=== PATIENT | female | born 1985 | race Caucasian/White ===

== ENCOUNTER 2022-11-19 21:56 | Emergency (ER) | payer BC, SELFPAY ==
[2022-11-19 22:21] VITALS: BP 134/88; PULSE 96; RESP 18; TEMP 36.8; O2SAT 98; BMI 29.3
--- NOTE | 2022-11-19 22:38 | ED.BACK1 ---
HPI - Back Pain/Injury General Chief Complaint: Back Pain/Injury Stated Complaint: UPPER PAIN Time Seen by Provider: 11/19/22 22:33 Source: patient Mode of arrival: walk-in Limitations: no limitations History of Present Illness HPI Narrative: patient states she has a history of sciatica. Presents complaining of a flare up of her sciatica. States pain radiates into her right hamstring and also herl left buttocks. No lower extremity weakness. No loss of control of bowel or bladder. No recent injury. Denies abdominal pain or nausea. MD elicited complaint: Reports back pain Related Data Home Medications Medication Instructions Recorded Confirmed No Known Home Medications 11/19/22 11/19/22 Allergies Allergy/AdvReac Type Severity Reaction Status Date / Time No Known Drug Allergies Allergy Verified 11/19/22 22:24 Review of Systems ROS Status of ROS 10 or more systems reviewed and unremarkable except as noted in history and below [facility] Social History Smoking status: Current every day smoker Exam Constitutional Vital Signs - 24 hr 11/19/22 22:21 Temperature 98.3 F Pulse Rate [Monitor] 96 H Respiratory Rate 18 Blood Pressure [Right Arm] 134/88 H Pulse Oximetry 98 Oxygen Delivery Method Room Air Common normals: no apparent distress, oriented x3, no limitations, healthy appearing and alert [facility] Common normals: normocephalic and head/scalp atraumatic Eye Common normals: PERRL, EOMs intact bilaterally and conjunctivae normal Neck & C-Spine Common normals: full ROM Respiratory Common normals: normal respiratory effort and no use of accessory muscles Cardio Common normals: regular rate, regular rhythm, S1 normal heart sound and S2 normal heart sound GI Common normals: Normal to inspection, nondistended, normoactive bowel sounds present, soft to palpation and non-tender Back & Pelvis Common normals: no CVA tenderness Other: mild tenderness bilat SI joints. R>L Extremity Common normals: normal to inspection and full ROM Neuro Common normals: oriented x3, CN's II-XII intact bilaterally and moves all extremities Deep tendon reflexes: Rt Patellar (L4): 0, Lt Patellar (L4): 0, Rt Ankle (S1): 1+ and Lt Ankle (S1): 1+ Psych Appearance: grossly normal Course Vital Signs Vital signs: Vital Signs Temperature 98.3 F 11/19/22 22:21 Pulse Rate 96 H 11/19/22 22:21 Respiratory Rate 18 11/19/22 22:21 Blood Pressure 134/88 H 11/19/22 22:21 Pulse Oximetry 98 11/19/22 22:21 Oxygen Delivery Method Room Air 11/19/22 22:21 Temperature 98.3 F 11/19/22 22:21 Pulse Rate 96 H 11/19/22 22:21 Respiratory Rate 18 11/19/22 22:21 Blood Pressure 134/88 H 11/19/22 22:21 Pulse Oximetry 98 11/19/22 22:21 Oxygen Delivery Method Room Air 11/19/22 22:21 MDM - Back Pain/Injury MDM Narrative Medical decision making narrative: patient presents complaining of flare up of sciatica. Similar flare ups in the past. No lower extremity weakness. No neuro abnorms. Treated successfully in the department and is feeling better and requesting to go home. Lab Data Labs: Lab Results 11/19/22 Range/Units 22:54 WBC 7.5 (4.0-11.0) 10^3/uL RBC 4.25 (4.20-5.40) 10^6/uL Hgb 12.5 (12.0-16.0) g/dL Hct 36.6 (36.0-48.0) % MCV 86.1 (81.0-99.0) fL MCH 29.4 (26.7-34.0) pg MCHC 34.2 (29.9-35.2) g/dL RDW 12.4 (11.0-15.0) % Plt Count 269 (150-450) 10^3/uL MPV 9.7 (9.5-13.5) fL Neut % (Auto) 60.6 (43.0-75.0) % Lymph % (Auto) 27.5 (20.5-60.0) % Treasure % (Auto) 8.1 (1.7-12.0) % Eos % (Auto) 3.2 (0.9-7.0) % Baso % (Auto) 0.5 (0.2-2.0) % Neut # (Auto) 4.5 (1.4-6.5) 10^3/uL Lymph # (Auto) 2.1 (1.2-3.8) 10^3/uL Treasure # (Auto) 0.6 (0.3-0.8) 10^3/uL Eos # (Auto) 0.2 (0.0-0.7) 10^3/uL Baso # (Auto) 0.0 (0.0-0.1) 10^3/uL Abs Immat Gran (auto) 0.01 (0.00-0.03) 10^3/uL Imm/Tot Granulo (auto) 0.1 (0.0-0.5) % ESR 16 (<=20) mm/hr Sodium 141 (136-145) mmol/L Potassium 3.2 L (3.5-5.1) mmol/L Chloride 106 (98-107) mmol/L Carbon Dioxide 28.1 (21.0-32.0) mmol/L Anion Gap 10.1 BUN 16.0 (7.0-18.0) mg/dL Creatinine 0.80 (0.55-1.02) mg/dL Est GFR ( Amer) >60 (>=60) Est GFR (Non-Af Amer) >60 (>=60) BUN/Creatinine Ratio 20.0 Glucose 80 (74-106) mg/dL Calcium 8.8 (8.5-10.1) mg/dL C-Reactive Protein 0.2 (<=1.0) mg/dL Discharge Plan Discharge Chief Complaint: Back Pain/Injury Clinical Impression: Sciatica Prescriptions / Home Meds: No Action No Known Home Medications Instructions: Sciatica (ED) Additional Instructions: follow up with your family doctor for recheck in 2-3 days Stand Alone Forms: Portal Instructions Referrals: Physician,Non-Staff, MD [Primary Care Provider] - 1 week
[2022-11-19 23:10] LABS: Basophils Percent Auto 0.5 % (0.2-2.0); Eosinophils Absolute Auto 0.2 10^3/uL (0.0-0.7); Eosinophils Percent Auto 3.2 % (0.9-7.0); Hematocrit 36.6 % (36.0-48.0); Hemoglobin 12.5 g/dL (12.0-16.0); Immature Granulocytes Abs Auto 0.01 10^3/uL (0.00-0.03); Immature Granulocytes Pct Auto 0.1 % (0.0-0.5); Lymphocytes Absolute Auto 2.1 10^3/uL (1.2-3.8); Lymphocytes Percent Auto 27.5 % (20.5-60.0); Mean Corpuscular HGB Conc 34.2 g/dL (29.9-35.2); Mean Corpuscular Hemoglobin 29.4 pg (26.7-34.0); Mean Corpuscular Volume 86.1 fL (81.0-99.0); Mean Platelet Volume 9.7 fL (9.5-13.5); Monocytes Absolute Auto 0.6 10^3/uL (0.3-0.8); Monocytes Percent Auto 8.1 % (1.7-12.0); Neutrophils Absolute Auto 4.5 10^3/uL (1.4-6.5); Neutrophils Percent Auto 60.6 % (43.0-75.0); Platelet Count 269 10^3/uL (150-450); Red Blood Count 4.25 10^6/uL (4.20-5.40); Red Cell Distribution Width 12.4 % (11.0-15.0); White Blood Count 7.5 10^3/uL (4.0-11.0)
[2022-11-19 23:20] LABS: Anion Gap 10.1; C Reactive Protein 0.2 mg/dL (<=1.0); Calcium 8.8 mg/dL (8.5-10.1); Carbon Dioxide 28.1 mmol/L (21.0-32.0); Chloride 106 mmol/L (98-107); Estimated GFR (African America >60 (>=60); Estimated GFR (Non-African Ame >60 (>=60); Glucose 80 mg/dL (74-106); Potassium 3.2 mmol/L (3.5-5.1); Sodium 141 mmol/L (136-145)
[2022-11-19] MEDS: METHYLPREDNISOLONE SOD SUCC PF 125 MG/2 ML VIAL IVP (23:22)
[2022-11-19] MEDS: ORPHENADRINE 60 MG/ 2 ML VIAL IV (23:22)
[2022-11-19 23:25] LABS: Erythrocyte Sedimentation Rate 16 mm/hr (<=20)
--- NOTE | 2022-11-19 23:41 | PC.NURSE ---
while giving solumedrol patient gasped and clutched chest. patient had to sit up and said she felt something weird like a flutter. ekg obtained and physician notified
--- NOTE | 2022-11-19 23:46 | PC.NURSE ---
RN Flaco asks this nurse to assist her in pt's room When giving meds pt began complaining of a fluttering in her chest Again after leaving the room pt rang call light, that is when this nurse went in Flaco was placing pt back on the monitor, this nurse noticed several beats of PVC's initiallty however once completely on the monitor there were no more visible and the patients symptoms stopped Pt is to remain on the monitor and was given her call light to let this nurse know if she experiences the feeling again. this nurse assuming care at this time
[2022-11-19 23:54] VITALS: PULSE 74
--- NOTE | 2022-11-20 00:42 | PC.NURSE ---
Pt states she is ready to go home and is requesting discharge
== END 2022-11-20 00:56 | disposition home or self-care (01) ==
PROVIDERS: Emergency Provider Internal Medicine
DX: M54.30 Sciatica, unspecified side (principal); F17.210 Nicotine dependence, cigarettes, uncomplicated
CPT/HCPCS: 36415; 80048; 85025; 85652; 86140; 96374; 96375; 99284; J2930

== ENCOUNTER 2023-10-12 15:03 | Emergency (ER) | payer BC, SELFPAY ==
[2023-10-12 15:11] VITALS: BP 134/83; PULSE 91; TEMP 36.8; O2SAT 98; BMI 30.5
--- NOTE | 2023-10-12 15:26 | XR_ITS ---
The [address] [address] Patient Name: KAILEY GILLIS MRN: [id number] date: 1985 Sex: F Assigned Patient Location: ED.MAIN Current Patient Location: ER Accession/Order Number: [id number] Exam Date: 10/12/2023 16:13 Report Date: 10/12/2023 17:21 At the request of: NETTIE GUILELN Procedure: XR ankle RT min 3V EXAM: XR foot RT min 3V, XR ankle RT min 3V HISTORY: The patient is a 37-year-old female, fall COMPARISON: None. FINDINGS: The right foot is radiographically negative with no evidence of fracture, dislocation, joint space narrowing, osteophytes, or other osseous or articular abnormalities. No acute or ununited fractures are seen within or around the ankle joint. The ankle mortise is intact and uniform. The syndesmosis is maintained. There is lateral soft tissue swelling. XR/XR ankle RT min 3V IMPRESSION: No fractures seen in the right foot or right ankle. Electronically authenticated by: VICKIE RUANO Date: 10/12/2023 17:21
--- NOTE | 2023-10-12 15:26 | XR_ITS ---
The [address] [address] Patient Name: KAILEY GILLIS MRN: [id number] date: 1985 Sex: F Assigned Patient Location: ED.MAIN Current Patient Location: ER Accession/Order Number: [id number] Exam Date: 10/12/2023 16:13 Report Date: 10/12/2023 17:21 At the request of: NETTIE GUILLEN Procedure: XR foot RT min 3V EXAM: XR foot RT min 3V, XR ankle RT min 3V HISTORY: The patient is a 37-year-old female, fall COMPARISON: None. FINDINGS: The right foot is radiographically negative with no evidence of fracture, dislocation, joint space narrowing, osteophytes, or other osseous or articular abnormalities. No acute or ununited fractures are seen within or around the ankle joint. The ankle mortise is intact and uniform. The syndesmosis is maintained. There is lateral soft tissue swelling. XR/XR foot RT min 3V IMPRESSION: No fractures seen in the right foot or right ankle. Electronically authenticated by: VICKIE RUANO Date: 10/12/2023 17:21
--- NOTE | 2023-10-12 15:59 | ED.LOWEXI1 ---
HPI HPI - Extremity Injury (Lower) General Chief Complaint: Extremity Injury, Lower Stated Complaint: FALL LOWER INJURY Time Seen by Provider: 10/12/23 15:26 Source: patient Mode of arrival: Wheelchair Limitations: no limitations History of Present Illness HPI Narrative: The patient tripped and fell on the cracked concrete before arrival, the patient denies any other injuries. She mentioned that she had a history of old injury in the right ankle mostly sprain, the patient has not been able to put weight on her right ankle since the injury happened earlier today Related Data Home Medications ?Medication ?Instructions ?Recorded ?Confirmed cyanocobalamin (vitamin B-12) 1,000 mcg PO DAILY 10/12/23 10/12/23 1,000 mcg tablet cyclobenzaprine 10 mg tablet 10 mg PO BEDTIME PRN muscle pain 10/12/23 10/12/23 Previous Rx's ?Medication ?Instructions ?Recorded famotidine 20 mg tablet (Pepcid) 20 mg PO BID #10 tabs 10/12/23 meloxicam 15 mg tablet 15 mg PO DAILY PRN pain #14 tabs 10/12/23 prednisone 20 mg tablet 20 mg PO DAILY #5 tabs 10/12/23 Allergies Allergy/AdvReac Type Severity Reaction Status Date / Time No Known Drug Allergies Allergy Verified 11/19/22 22:24 Opioid HPI Opioid Management Most Recent Pain and Opioid Data: Last Pain Scale 6 10/12/23 17:31 Last MAR Pain Assessment 10/12/23 17:31 Review of Systems ROS Status of ROS 10 or more systems reviewed and unremarkable except as noted in history and below [facility] Social History Smoking status: Current every day smoker Exam Narrative Exam Narrative: Nurses notes and vital signs reviewed and patient is not hypoxic. General: Well-appearing and in no apparent distress. Skin: Warm, dry, no pallor noted. No rash. Head: Normocephalic, atraumatic. Neck: Supple, non-tender. Eye: Pupils are equal, round and EOMI. No scleral icterus. Ears, Nose, Mouth, and Throat: TM are clear, no nasal mucosal hypertrophy. Oral mucosa is moist, no posterior oropharynx erythema, uvula is mid-line Cardiovascular: Regular Rate and Rhythm without murmur, gallop or rub. Respiratory: No accessory muscle use or respiratory distress. Lungs are clear to auscultation, no wheezing, rales or rhonchi Chest Wall: no tenderness Back: No midline thoracic or lumbar vertebral tenderness. No CVA tenderness Musculoskeletal: normal ROM, no calf or popliteal tenderness, there is tenderness on palpation of the right ankle and there is significant swelling of the right ankle mostly medially and laterally no ecchymosis, no tenderness on palpation of the foot itself and no vascular injury detected GI: Abdomen is soft, non-distended. Normal bowel sounds. No masses appreciated. No tenderness to palpation. No rebound, guarding, or rigidity noted. Neurological: A&O x4. No cranial nerve dysfunction observed. No truncal ataxia. Moves all extremities. Sensation intact. Psychiatric: Cooperative and interactive. Normal mood and affect. Constitutional Vital Signs, click to edit/add: Last Vital Signs Temp 98.2 F 10/12/23 15:11 Pulse 91 H 10/12/23 15:11 Resp 18 10/12/23 15:11 BP 134/83 10/12/23 15:11 Pulse Ox 98 10/12/23 15:11 O2 Del Method Room Air 10/12/23 15:11 Course Vital Signs Vital signs: Vital Signs Temperature 98.2 F 10/12/23 15:11 Pulse Rate 91 H 10/12/23 15:11 Respiratory Rate 18 10/12/23 15:11 Blood Pressure 134/83 10/12/23 15:11 Pulse Oximetry 98 10/12/23 15:11 Oxygen Delivery Method Room Air 10/12/23 15:11 Temperature 98.2 F 10/12/23 15:11 Pulse Rate 91 H 10/12/23 15:11 Respiratory Rate 18 10/12/23 15:11 Blood Pressure 134/83 10/12/23 15:11 Pulse Oximetry 98 10/12/23 15:11 Oxygen Delivery Method Room Air 10/12/23 15:11 MDM - Extremity Injury (Lower) MDM Narrative Medical decision making narrative: X-ray of the patient right ankle as well as foot showed no acute pathology, The patient right now presenting mostly with ankle sprain she had significant swelling initially. She was provided with crutches Hunter wrap as well as elevation and rest for the next few days and follow-up with podiatry as outpatient Patient also provided with prednisone Mobic and she is stopping the naproxen right now The patient is to follow up with primary care physician in next 2-3 days or to return to the emergency department should any of the signs or symptoms worsen or new symptoms develop. The patient agrees with the following Diagnosis and Treatment plan and the patient will be discharged home. Discharge Plan Discharge Stand Alone Forms: Portal Instructions Chief Complaint: Extremity Injury, Lower Clinical Impression: Ankle sprain and strain Patient Disposition: Home, Self-Care Time of Disposition Decision: 17:34 Condition: Good Prescriptions / Home Meds: New meloxicam 15 mg tablet 15 mg PO DAILY PRN (Reason: pain ) Qty: 14 0RF prednisone 20 mg tablet 20 mg PO DAILY Qty: 5 0RF famotidine [Pepcid] 20 mg tablet 20 mg PO BID Qty: 10 0RF Discontinued naproxen 500 mg tablet 500 mg PO Q12H PRN (Reason: pain) No Action cyanocobalamin (vitamin B-12) 1,000 mcg tablet 1,000 mcg PO DAILY cyclobenzaprine 10 mg tablet 10 mg PO BEDTIME PRN (Reason: muscle pain) Print Language: Angolan Instructions: Ankle Sprain (DC) Additional Instructions: please stop using naproxen while using the current prescriptions Referrals: [facility] [Primary Care Provider] - 1 week Moses Silva DPM [Physician] - 1 week
[2023-10-12] MEDS: KETOROLAC TROMETHAMINE 30 MG/ML VIAL IM (16:07)
[2023-10-12] MEDS: TRAMADOL HCL 50 MG TABLET PO (17:31)
[2023-10-12 17:48] VITALS: BP 142/74; PULSE 87; O2SAT 98
== END 2023-10-12 17:51 | disposition home or self-care (01) ==
PROVIDERS: Emergency Provider Emergency Medicine
DX: S96.911A Strain of unspecified muscle and tendon at ankle and foot level, right foot, initial encounter (principal); S93.401A Sprain of unspecified ligament of right ankle, initial encounter; W01.0XXA Fall on same level from slipping, tripping and stumbling without subsequent striking against object, initial encounter; F17.210 Nicotine dependence, cigarettes, uncomplicated; Z79.899 Other long term (current) drug therapy
CPT/HCPCS: 73610; 73630; 96372; 99285